=== PATIENT | female | born 1935 | race Caucasian/White ===

== ENCOUNTER 2016-07-08 08:42 | Day surgery (SDC) | payer MEDICARE ==
[2016-07-08] VITALS (8 sets, daily range): BP systolic 124–164; BP diastolic 56–86; PULSE 68–93; RESP 16–20; TEMP 97.8–98.3; O2SAT 92–97
[~2016-07-08] VITALS: Ht 156.2 cm; Wt 56.8 kg
[2016-07-08] MEDS ORDERED: MULT1CHW70 (09:11)
[2016-07-08] MEDS ORDERED: PRAD150C PO (09:11)
[2016-07-08] MEDS ORDERED: AMLO2.5T PO (09:11)
[2016-07-08] MEDS ORDERED: FURO20TA PO (09:11)
[2016-07-08] MEDS ORDERED: HYDR-3533 PO (09:11)
[2016-07-08] MEDS ORDERED: FERR325T PO (09:11)
[2016-07-08] MEDS ORDERED: SIMV40TA PO (09:11)
[2016-07-08] MEDS ORDERED: CALC1TAB30 PO (09:11)
[2016-07-08] MEDS ORDERED: POTA-245 PO (09:11)
[2016-07-08] MEDS ORDERED: SODIUM CHLOR 0.9% 1000 ML IV SCH (09:30)
[2016-07-08] MEDS ORDERED: LIDOCAINE 1%/EPINEPHrine 1:100,000 SOLN 20 ML VIAL ONE (10:25)
[2016-07-08] MEDS ORDERED: fentaNYL CITRATE 250 MCG/5 ML AMP ONE (10:59)
[2016-07-08] MEDS ORDERED: MIDAZOLAM HCL 5 MG/5 ML VIAL ONE (10:59)
[2016-07-08] MEDS ORDERED: THROMBIN (TOPICAL) 5,000 UNIT VIAL ONE (11:10)
[2016-07-08] MEDS ORDERED: oxyCODONE/ACETAMINOPHEN 5 MG/325 MG TAB PO PRN (12:15)
[2016-07-08] MEDS ORDERED: GELATIN 12 MM/7 MM FOAM ONE (13:03)
--- NOTE | 2016-07-08 13:36 | RADRPT ---
EXAM DATE/TIME: 07/08/2016 11:06 [facility] COMPARISON: No previous studies available for comparison. INDICATIONS : Abdominal mass. SEDATION TIME: 30 minutes BIOPSY SITE: abdomen MEDICATION(S): 1.) 3 mg midazolam (Versed) IV 2.) 200 mcg fentanyl (Sublimaze) IV DEVICE(S): 1.) 18 gauge Edwards blunt needle 5cm 2.) 20 gauge Temno core biopsy needle 11cm 3.) 20 gauge Temno Core biopsy needle 15cm MEDICAL HISTORY : None. SURGICAL HISTORY : Appendectomy. Hysterectomy. Cholecystectomy. ENCOUNTER: Initial ACUITY: 1 day PAIN SCORE: 0/10 LOCATION: upper quadrant A total of two core specimen(s) were obtained and sent to the laboratory for pathologic evaluation. PROCEDURE: 1. CT guided abdomen biopsy. 2. Conscious sedation with continuous EKG and oximetry monitoring. Prior to the procedure informed consent was obtained. Any appropriate prior imaging studies were rev iewed. The site was prepped in a sterile fashion. Full sterile technique was used, including cap, mask, phuc rile gloves and gown and a large sterile sheet. Hand hygiene and 2% chlorhexidine and/or betadine/al cohol prep was utilized per protocol for cutaneous antisepsis. The skin and subcutaneous tissues wer e infiltrated with local anesthetic solution. Under CT guidance an 18 gauge blunt was placed through the left lobe of the liver into the mass which probably arises from the pancreas. 2 cores were obtained. The tract was embolized with Gelfoam and thrombin. Follow-up CT scan reveals no hemorrhage. The patient tolerated the procedure well and there were no complications. The patient was returned to the Radiology Outpatient Unit in stable condition. CONCLUSION: Uncomplicated CT guided biopsy. Preliminary pathology is adequate for diagnosis. Frantz Joshi MD FACR on July 08, 2016 at 13:33 Board Certified Radiologist. This report was verified electronically.
== END 2016-07-08 15:27 | disposition home or self-care (01) ==
LOC: HRAD 08:42 → HRIP 08:43 → EDSTATUS 09:00 → HRAD 12:40 → HRIP 12:55 → HRAD 15:27
PROVIDERS: ATTEND Internal Medicine
DX: R19.01 Right upper quadrant abdominal swelling, mass and lump (principal); R19.06 Epigastric swelling, mass or lump; R19.02 Left upper quadrant abdominal swelling, mass and lump
CPT/HCPCS: 49180; 77012; 88307; 88333; 88341; J2250; J3010; J7030; 88305; 88342; 99152

== ENCOUNTER 2016-07-22 06:13 | Day surgery (SDC) | payer MEDICARE ==
[~2016-07-22] VITALS: Ht 156.2 cm; Wt 56.8 kg
[~2016-07-22 06:13] MED LIST: AMLO2.5T PO; CALC1TAB30 PO; FERR325T PO; FURO20TA PO; HYDR-3533 PO; MULT1CHW70; POTA-245 PO; PRAD150C PO; SIMV40TA PO
[2016-07-22 06:58] VITALS: BP 144/78; PULSE 84; RESP 20; TEMP 98.5; O2SAT 90
[2016-07-22] MEDS ORDERED: ceFAZolin 2 GM PREMIX 50 ML - implanted port/tunneled catheter insertion IV SCH (07:00)
[2016-07-22] MEDS ORDERED: SODIUM CHLORIDE 0.9% 1000 ML IV SCH (07:00)
[2016-07-22] MEDS ORDERED: CHLORHEXIDINE GLUCONATE 2 % 1 PACK (2 CLOTHS) TOPICAL SCH (07:00)
[2016-07-22] MEDS ORDERED: VANCOMYCIN 1000 MG/NS 250 ML - implanted port/tunneled catheter IV SCH ×2 (07:00)
[2016-07-22] MEDS ORDERED: POVIDONE IODINE 5% (ANTISEPSIS KIT) 4 APPLICATIONS EACH NARE SCH (07:00)
[2016-07-22 07:32] LABS: HEMATOCRIT 34.4 % (35.0-46.0); MEAN CORPUSCULAR HEMOGLOBIN 26.7 PG (27.0-34.0); MEAN CORPUSCULAR HGB CONC 32.2 % (32.0-36.0); PLATELET COUNT 181 TH/MM3 (150-450); RED BLOOD COUNT 4.14 MIL/MM3 (4.00-5.30); RED CELL DISTRIBUTION WIDTH 16.4 % (11.6-17.2); WHITE BLOOD COUNT 25.8 TH/MM3 (4.0-11.0)
[2016-07-22 07:34] LABS: HEMO FLAGS AUTO DIFF
[2016-07-22 07:39] LABS: APTT (PATIENT) 28.7 SEC (24.3-30.1); INTERNATIONAL NORMALIZED RATIO 1.1 RATIO; PROTHROMBIN TIME - PATIENT 12.7 SEC (9.8-11.6)
[2016-07-22] MEDS ORDERED: MIDAZOLAM HCL 5 MG/5 ML VIAL ONE (08:05)
[2016-07-22] MEDS ORDERED: fentaNYL CITRATE 250 MCG/5 ML AMP ONE (08:05)
[2016-07-22 08:11] LABS: BANDS 4 % (0-6); EOSINOPHILS 6 % (0-4); NEUTROPHIL # MANUAL DIFF 21.2 TH/MM3 (1.8-7.7); POLYS (SEG NEUTROPHILS) 78 % (16-70); WBC DIFF SAMPLE 100
[2016-07-22 08:12] LABS: PLATELET ESTIMATE SMEAR NORMAL (NORMAL); PLATELET MORPHOLOGY NORMAL (NORMAL); SCAN/DIFF FINAL DIFF MANUAL; TOXIC VACUOLATION PRESENT (NONE SEEN)
[2016-07-22] MEDS ORDERED: LIDOCAINE 1%/EPINEPHrine 1:100,000 SOLN 20 ML VIAL ONE (08:20)
[2016-07-22 09:00] VITALS: BP 119/55; PULSE 84; RESP 16; TEMP 98.4; O2SAT 93
[2016-07-22] MEDS ORDERED: IOHEXOL 350 MG/ML 50 ML BTL (for RAD DIAG) IV ONE (09:04)
[2016-07-22 09:21] VITALS: BP 108/52; PULSE 74; RESP 16; O2SAT 96
[2016-07-22 09:32] VITALS: BP 115/55; PULSE 72; RESP 16; O2SAT 95
--- NOTE | 2016-07-22 09:51 | RADRPT ---
EXAM DATE/TIME: 07/22/2016 08:21 [facility] COMPARISON: No previous studies available for comparison. INDICATIONS : Patient presents with pancreatic cancer in need of port placement for chemotherapy treatment. MEDICAL HISTORY : AFIB Osteoporosis Sleep apnea Arthritis SURGICAL HISTORY : Bilateral cataracts Pacer [place] Hernia repair Hysterectomy Bilat femur celeste insertion ENCOUNTER: Initial ACUITY: 1 month PAIN SCORE: 1/10 LOCATION: Abdominal pain FLUORO TIME: 1.9 minutes SEDATION TIME: 30 minutes CONTRAST: 5 cc Visipaque (iodixanol) ACCESS: Right internal jugular vein SEDATION: 1.) 4 mg midazolam (Versed) IV 2.) 150 mcg fentanyl (Sublimaze) IV Prophylactic antibiotics were administered with appropriate pre-procedure timing. Vancomycin within 2 hours of procedure, Ancef (or alternative) within 1 hour of procedure. DEVICE: 1. 8 Portuguese single lumen Bard Power Port PROCEDURE : 1. Continuous pulse oximetry and EKG monitoring. 2. Intravenous conscious sedation. 3. Ultrasound guidance for venous access. 4. Fluoroscopic guided implantable central venous port placement. The patient was placed supine. The neck was prepped in sterile fashion. Full sterile technique was u sed, including cap, mask, sterile gloves and gown, and a large sterile sheet. Hand hygiene and 2% ch lorhexidine Betadine was utilized per protocol for cutaneous antisepsis with appropriate dry time for site. The skin and subcutaneous tissues were infiltrated with local anesthetic solution. Under direct ultrasound guidance, central venous access was accomplished in the targeted vessel. The ultrasound images depicting access guidance were stored and saved to PACS for permanent record. A s ubcutaneous pocket was created using blunt dissection. The port was introduced to the pocket. The c atheter tubing was fed through a subcutaneous tunnel to the venotomy site. The catheter tubing was c ut to a suitable length and then was introduced through a valved Peel-Away sheath and positioned with catheter tubing tip at the cavo-atrial junction level. The pocket incision was closed with subcutic ular Vicryl suture. Steri-Strips were applied. The port was flushed and locked with heparin solutio n per protocol. Sterile dressing was applied to the site. The patient tolerated the procedure well. Conscious sedation was performed with the prescribed dosages and duration as above. The patient zeferino ated the procedure well and there were no complications. EKG and oximetry remained stable throughout the procedure. The patient was sent to post anesthesia recovery in stable condition. CONCLUSION: Uncomplicated ultrasound and fluoroscopic guided implanted central venous port catheter placement as described in detail above. An 8 Portuguese Power port was placed. Walter Moreland MD on July 22, 2016 at 9:40 Board Certified Radiologist. This report was verified electronically.
--- NOTE | 2016-07-22 09:54 | PD.RAD ---
Post Procedure Progress Note Pre Procedure Diagnosis: (1) Cancer Post Procedure Diagnosis: (1) Cancer Procedure Date: Jul 22, 2016 Supervising Radiologist: Walter Moreland Proceduralist/Assist: Higinio Campbell RT(R), RT Doug(R) Anesthesia: Conscious Sedation Plan of Activity Patient to Unit: ROPU Patient Condition: Good See PACS Report for procedural detail/treatment Central Venous Access Device Procedure 1 Right Internal Jugular Infusaport Placement single lumen Walter Moreland MD Jul 22, 2016 09:54
[2016-07-22 10:00] VITALS: BP 119/57; PULSE 86; RESP 16; O2SAT 96
[2016-07-22] MEDS ORDERED: SODIUM CHLORIDE 0.9% FLUSH 5 ML FLUSH IVF PRN (10:00)
[2016-07-22 10:59] VITALS: BP 118/68; PULSE 80; RESP 16; O2SAT 95
== END 2016-07-22 11:07 | disposition home or self-care (01) ==
LOC: HROP 06:13 → HRIP 06:15 → HROP 11:07
PROVIDERS: ATTEND Internal Medicine Hematology & Oncology
DX: C25.9 Malignant neoplasm of pancreas, unspecified (principal)
CPT/HCPCS: 36561; 75860; 76937; 77001; 85007; 85027; 85610; 85730; C1788; J0690; J1642; J2250; J3010; J3370; J7030; J7050; Q9967